=== PATIENT | male | born 1965 | race Caucasian/White ===

== ENCOUNTER → 2023-05-23 | Outpatient (CLI) | payer OTHER, SELFPAY ==
--- NOTE | 2023-05-23 | IMM_PTH ---
PATIENT: GIOVANNA JONES Sr. LOC: [facility] U#:[id number] AGE/SX: 57/M ROOM: RE05/23/[address]: Dr. Oscar Dunaway MD : 1965 BED: DIS: 05/23/2023 SPEC #: [id number] RECD: 05/27/23 15:46 STATUS: YVETTE RETatyana #: [id number] ENID: 05/23/23 00:[address]: Oscar Dunaway DEPT: IMMUNOHISTOCHEMISTRY RECD BY: Steph Dumont Tissues: A - PROSTATE RIGHT B - PROSTATE RIGHT C - PROSTATE RIGHT D - PROSTATE LEFT Procedures: 34BE12 (add) P40 (add) 34BE12 (initial) PHYSICIAN & INSTITUTION [place] [id number] SPECIMEN INFORMATION: Tissue Source: A - Right apex, B - Right mid, C - Right base, D - Left apex Clinical Info: Elevated PSA Specimen Number: [id number] A-D CPT code: 83420, 22582 x7 METHODOLOGY: Deparaffinized sections of prefer/formalin-fixed tissue or PAP/DQ stained slides are incubated with monoclonal/polyclonal antibodies/oligonucleotide probes. Localization is made via biotin free immunoperoxidase method. Appropriate controls are performed and reacted as expected. Results on target cell population are indicated in the following table: RESULTS: ANTIBODY / CLONE RESULT Block A P40 (BC28) negative 34BE12 (34BE12) negative Block B P40 (BC28) negative 34BE12 (34BE12) negative Block C P40 (BC28) positive 34BE12 (34BE12) positive Block D P40 (BC28) negative 34BE12 (34BE12) negative These tests were developed and their performance characteristics determined by [facility]. They may not have been cleared or approved by the U.S. Food and Drug Administration. The FDA has determined that such clearance or approval is not necessary. The above immunohistochemical/dualISH markers are ordered and reviewed by the Pathologist. INTERPRETATION: A. Right prostate, apex, core biopsy: Adenocarcinoma. B. Right prostate, mid, core biopsy: Adenocarcinoma. C. Right prostate, base, core biopsy: Benign prostatic tissue. D. Left prostate, apex, core biopsy: Adenocarcinoma. AM:steven 05/28/2023
--- NOTE | 2023-05-23 08:00 | PROSBIL_PTH ---
PATIENT: GIOVANNA JONES Sr. [id number] AGE/SX: 57/M ROOM: RE05/23/[address]: Dr. Oscar Dunaway MD : 1965 BED: DIS: 05/23/2023 SPEC #: [id number] RECD: 05/23/23 16:08 STATUS: YVETTE DESIRE #: [id number] ENID: 05/23/23 08:[address]: Oscar Dunaway DEPT: SURGICAL PATHOLOGY RECD BY: Hailey Parker Tissues: A - PROSTATE RIGHT B - PROSTATE RIGHT C - PROSTATE RIGHT D - PROSTATE LEFT E - PROSTATE LEFT F - PROSTATE LEFT Procedures: PROSTATE BX HEADER OPERATION: Prostate biopsy PRE-OP DIAGNOSIS: Elevated PSA TISSUE SUBMITTED: A - Right apex, B - Right mid, C - Right base, D - Left apex, E - Left mid, F - Left base MICROSCOPIC DIAGNOSIS A. Right prostate, apex, core biopsy: Adenocarcinoma. [place] grade: 6 (3+3) Cores involved: 1 out of 2 cores Tissue involved: 2% Greatest tumor length: 1.0 millimeters See comment. B. Right prostate, mid, core biopsy: Adenocarcinoma. [place] grade: 6 (3+3) Cores involved: 1 out of 2 cores Tissue involved: 20% Greatest tumor length: 4 millimeters See comment. C. Right prostate, base, core biopsy: Benign prostatic tissue. See comment. D. Left prostate, apex, core biopsy: Adenocarcinoma. [place] grade: 6 (3+3) Cores involved: 1 out of 2 cores Tissue involved: 45% Greatest tumor length: 3 millimeters Focal high-grade prostatic intraepithelial neoplasia (HGPIN). See comment. E. Left prostate, mid, core biopsy: Adenocarcinoma. [place] grade: 6 (3+3) Cores involved: 2 out of 2 cores Tissue involved: 70% Greatest tumor length: 6 millimeters F. Left prostate, base, core biopsy: Chronic prostatitis with focal acute prostatitis. AM:steven 05/27/2023 AM:steven 06/12/2023 COMMENT A-D. Immunohistochemistry ([id number]) supports the above diagnosis. MICROSCOPIC DESCRIPTION Slides are reviewed. GROSS DESCRIPTION A - Received is one container designated prostate, right apex. The specimen consists of two elongated fragments of light garcia-white soft tissue each measuring 1.0 cm in length and 0.1 cm in diameter. The specimen is totally submitted in one cassette. B - Received is one container designated prostate, right mid. The specimen consists of two elongated fragments of light garcia-white soft tissue each measuring 1.5 cm in length and 0.1 cm in diameter. The specimen is totally submitted in one cassette. C - Received is one container designated prostate, right base. The specimen consists of two elongated fragments of light garcia-white soft tissue each measuring 1.5 cm in length and 0.1 cm in diameter. The specimen is totally submitted in one cassette. D - Received is one container designated prostate, left apex. The specimen consists of two elongated fragments of light garcia-white soft tissue each measuring 1.0 cm in length and 0.1 cm in diameter. The specimen is totally submitted in one cassette. E - Received is one container designated prostate, left mid. The specimen consists of two elongated fragments of light garcia-white soft tissue each measuring 1.0 cm in length and 0.1 cm in diameter. The specimen is totally submitted in one cassette. F - Received is one container designated prostate, left base. The specimen consists of two elongated fragments of light garcia-white soft tissue each measuring 1.5 cm in length and 0.1 cm in diameter. The specimen is totally submitted in one cassette. / AM:steven 05/24/2023 TC:0 [facility]: [id number] x6
--- NOTE | 2023-05-23 08:00 | PROSBIL_PTH ---
PATIENT: GIOVANNA JONES Sr. [id number] AGE/SX: 57/M ROOM: RE05/23/[address]: Dr. Oscar Dunaway MD : 1965 BED: DIS: 05/23/2023 SPEC #: [id number] RECD: 05/23/23 16:08 STATUS: YVETTE DESIRE #: [id number] ENID: 05/23/23 08:[address]: Oscar Dunaway DEPT: SURGICAL PATHOLOGY RECD BY: Hailey Parker Tissues: A - PROSTATE RIGHT B - PROSTATE RIGHT C - PROSTATE RIGHT D - PROSTATE LEFT E - PROSTATE LEFT F - PROSTATE LEFT Procedures: PROSTATE BX HEADER OPERATION: Prostate biopsy PRE-OP DIAGNOSIS: Elevated PSA TISSUE SUBMITTED: A - Right apex, B - Right mid, C - Right base, D - Left apex, E - Left mid, F - Left base MICROSCOPIC DIAGNOSIS A. Right prostate, apex, core biopsy: Mild chronic inflammation with focal acute inflammation. Focal high-grade prostatic intraepithelial neoplasia (HGPIN). See comment. B. Right prostate, mid, core biopsy: Adenocarcinoma. [place] grade: 6 (3+3) Cores involved: 1 out of 2 cores Tissue involved: 20% Greatest tumor length: 4 millimeters See comment. C. Right prostate, base, core biopsy: Benign prostatic tissue. See comment. D. Left prostate, apex, core biopsy: Adenocarcinoma. Shel[place] grade: 6 (3+3) Cores involved: 1 out of 2 cores Tissue involved: 45% Greatest tumor length: 3 millimeters Focal high-grade prostatic intraepithelial neoplasia (HGPIN). See comment. E. Left prostate, mid, core biopsy: Adenocarcinoma. [place] grade: 6 (3+3) Cores involved: 2 out of 2 cores Tissue involved: 70% Greatest tumor length: 6 millimeters F. Left prostate, base, core biopsy: Chronic prostatitis with focal acute prostatitis. AM:steven 05/27/2023 COMMENT A-D. Immunohistochemistry ([id number]) supports the above diagnosis. MICROSCOPIC DESCRIPTION Slides are reviewed. GROSS DESCRIPTION A - Received is one container designated prostate, right apex. The specimen consists of two elongated fragments of light garcia-white soft tissue each measuring 1.0 cm in length and 0.1 cm in diameter. The specimen is totally submitted in one cassette. B - Received is one container designated prostate, right mid. The specimen consists of two elongated fragments of light garcia-white soft tissue each measuring 1.5 cm in length and 0.1 cm in diameter. The specimen is totally submitted in one cassette. C - Received is one container designated prostate, right base. The specimen consists of two elongated fragments of light garcia-white soft tissue each measuring 1.5 cm in length and 0.1 cm in diameter. The specimen is totally submitted in one cassette. D - Received is one container designated prostate, left apex. The specimen consists of two elongated fragments of light garcia-white soft tissue each measuring 1.0 cm in length and 0.1 cm in diameter. The specimen is totally submitted in one cassette. E - Received is one container designated prostate, left mid. The specimen consists of two elongated fragments of light garcia-white soft tissue each measuring 1.0 cm in length and 0.1 cm in diameter. The specimen is totally submitted in one cassette. F - Received is one container designated prostate, left base. The specimen consists of two elongated fragments of light garcia-white soft tissue each measuring 1.5 cm in length and 0.1 cm in diameter. The specimen is totally submitted in one cassette. / AM:steven 05/24/2023 TC:0 CPT: 46044 x6
== END | disposition home or self-care (01) ==
PROVIDERS: Referring Provider Urology; Visit Provider Urology
DX: C61 Malignant neoplasm of prostate (principal); R97.20 Elevated prostate specific antigen [PSA]; N42.31 Prostatic intraepithelial neoplasia; N41.1 Chronic prostatitis
CPT/HCPCS: 88305; 88341; 88342; G0416

== ENCOUNTER 2023-07-24 07:53 | Observation (INO) | payer OTHER, SELFPAY ==
--- NOTE | 2023-07-16 14:02 | EKG12_ITS ---
Test Reason : PREOP Blood Pressure : / mmHG Vent. Rate : 073 BPM Atrial Rate : 073 BPM P-R Int : 138 ms QRS Dur : 110 ms QT Int : 392 ms P-R-T Axes : 029 -39 013 degrees QTc Int : 431 ms Normal sinus rhythm Left axis deviation Abnormal ECG Confirmed by TOSHIA REAVES, JAMES ([id number]), photographic editor ANNIE GUERRERO ([id number]) on 07/17/2023 5:56:26 AM Referred By: Rj Rosenthal Confirmed By:JAMES POPE MD
[2023-07-24] VITALS (12 sets, daily range): BP systolic 129–147; BP diastolic 75–89; PULSE 71–85; RESP 16–18; TEMP 36.3–37.1; O2SAT 92–100; BMI 38.0
--- OUTSIDE RECORDS SUMMARY | 2023-07-24 05:41 | XMS RPT_ITS | CCD ---
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 Name Role Phone CHELSEA CENTENO DO Primary Care Physician CHELSEA CENTENO DO Primary Care Unavailable CHELSEA CENTENO DO Attending Unavailable CHELSEA CENTENO DO Primary Care Unavailable VINEET REAVES, DR ALEKSANDRA MCKEON Attending CHELSEA Bedoya DO Primary Care Unavailable CHELSEA CENTENO DO Attending Unavailable CHELSEA CENTENO DO Attending Unavailable CHELSEA CENTENO DO Primary Care Unavailable CHELSEA CENTENO DO Attending Unavailable CHELSEA CENTENO DO Primary Care Unavailable Medications Current Medications Medication Drug Class(es) Dates Sig (Normalized) Sig (Original) atorvastatin 40 mg oral tablet (3 sources) HMG-CoA Reductase Inhibitor Start: 10-31-2022 atorvastatin 40 mg oral tablet Dose : 40 mg = 1 tab(s), Oral, Daily, # 90 tab(s), 3 Refill(s), Pharmacy: [id number], 177, cm, 09/10/22 16:03:00 EST, Height, kg, 09/10/22 16:03:00 EST, Dosing Weight Start Date: 10/31/22 Status: Ordered Problems Problem Classification Problem Date Documented Da te Episodic/Chronic Abdominal hernia (3 sources) Umbilical hernia 09-10-2022 Episodic Chronic kidney disease (1 source) Chronic kidney disease stage 3A 04-02-2023 Chronic Diabetes mellitus without complication (4 sources) Type 2 diabetes mellitus 09-26-2022 Chronic Disorders of lipid metabolism (4 sources) Mixed hyperlipidemia; Translations: [Mixed hyperlipidemia] Chronic Esophageal disorders (4 sources) Gastroesophageal reflux disease without esophagitis; Translations: [Gastro-esophageal reflux disease without esophagitis] Chronic Nutritional deficiencies (2 sources) Vitamin D deficiency 09-26-2022 Chronic Other aftercare (1 source) Long-term current use of drug therapy; Translations: [Other residential (current) drug therapy] Episodic Other disorders of stomach and duodenum (3 sources) Indigestion 04-02-2019 Episodic Other ear and sense organ disorders (3 sources) Sensation of blocked ear 09-10-2022 Episodi c Other ear and sense organ disorders (3 sources) Tinnitus 09-10-2022 Episodic Other nutritional; endocrine; and metabolic disorders (1 source) Morbid obesity; Translations: [Morbid (severe) obesity due to excess calories] Chronic Other nutritional; endocrine; and metabolic disorders (5 sources) Body mass index 40+ - severely obese 09-10-2022 Chronic Other nutritional; endocrine; and metabolic disorders (1 source) Body mass index 30+ - obesity 04-02-2023 Chronic Other nutritional; endocrine; and metabolic disorders (1 source) Severe obesity 04-02-2023 Chronic Other screening for suspected conditions (not mental disorders or infectious disease) (3 sources) Raised prostate specific antigen; Translations: [Elevated prostate specific antigen [PSA]] Episodic Residual codes; unclassified (3 sources) FH: Myocardial infarction 09-10-2022 Episodic Residual codes; unclassified (1 source) Memory impairment 04-02-2023 Episodic Screening and history of mental health and substance abuse codes (3 sources) Tobacco use and exposure - finding 09-10-2022 Chronic Unclassified (3 sources) Long-term current use of proton pump inhibitor therapy 09-10-2022 Unclassified (2 sources) Grade A1 albuminuria 09-26-2022 Results Test Name Value Interpretation Reference Range Facil ity Encounters Encounter Date Encounter Type Care Provider Facility Start: 04-19-2023 End: 04-20-2023 ambulatory CHELSEA CENTENO DO Facility:B Start: 04-19-2023 End: 04-19-[address] ALEKSANDRA MANLEY MD [facility] Start: 03-27-2023 End: 03-28-2023 ambulatory CHELSEA CENTENO DO Facility:B Start: 11-07-2022 End: 11-08-2022 ambulatory CHELSEA CENTENO DO Facility:B Start: 11-07-2022 End: 11-07-2022 Patient encounter procedure CHELSEA Agustin NAVACENTENO DO [facility] Start: 09-12-2022 End: 09-17-2022 ambulatory CHELSEA CENTENO DO Facility:B Start: 09-12-2022 End: 09-17-2022 Encounter for general adult medical examination without abnormal findings CHELSEA CENTENO DO Facility:B Start: 09-11-2022 End: 09-12-2022 ambulatory CHELSEA CENTENO DO Facility:B Start: 09-11-2022 End: 09-11-2022 Patient encounter procedure CHELSEA CENTENO DO [facility] Start: 09-11-2022 End: 09-11-2022 Well adult monitoring check done CHELSEA CENTENO DO [facility] Immunizations Immunization Date Immunization Notes Care Provider Fa [facility] 06-16-2019 influenza virus vaccine, unspecified formulation CHELSEA CENTENO DO [facility] 01-30-2013 tetanus toxoid, redu sunil diphtheria toxoid, and acellular pertussis vaccine, adsorbed CHELSEA CENTENO DO [facility] Payers Date Payer Category Payer Private Health Insurance [facility] [id number] 2017 Unknown [id number] 1965 Unknown [id number] 2.16.8 [id number] 1965 Unknown [id number] 2.16.8 [id number] 1965 Unknown [id number] 2.16.8 [id number] 1965 Unknown [id number] 2.16.8 [id number] 1965 Unknown [id number] 2.16.8 [id number] Social History Date Type Detail Facility Start: 04-02-2019 Tobacco smoking status Ex-smoker (fi nding) [facility] Evaluation + Plan note Laboratory Note Date & Type Note Facility Evaluation + Plan note Future Appointments Appointment Date:11/12/2022 04:00:00 PM Scheduled Provider:CHELSEA CENTENO DO Location:[facility] Appointment Type:PC OV Future Scheduled TestsMicroalbumin Level Urine 09/10/22 [facility] Evaluation + Plan note Note Date & Type Note Facility Evaluation + Plan note Future Appointments Appointment Date:11/12/2022 04:00:00 PM Scheduled Provider:CHELSEA CENTENO DO Location:[facility] Appointment Type:PC OV [facility] Evaluation + Plan note Laboratory Note Date & Type Note Facility Evaluation + Plan note Future Appointments Appointment Date:09/23/2023 04:30:00 PM Scheduled Provider:CHELSEA CENTENO DO Location:[facility] Appointment Type:PC Wellness Annual Future Scheduled TestsProstate Specific Antigen 04/02/23Thyroid Stimulating Hormone 04/02/23Free T4 04/02/23Vitamin B12 Level 04/02/23A1C Hemoglobin 04/02/23Complete Blood Count 04/02/23Lipid Profile 04/02/23Albumin/Creatinine Ratio, Random Urine 04/02/23Vitamin D Level 04/02/23Vitamin B6 Level 04/02/23Complete Metabolic Panel 04/02/23 [facility] Hospital course Narrative Note Date & Type Note Facility Hospital course Narrative No data available for this section [facility] Hospital Discharge instructions Note Date & Type Note Facility Hospital Discharge instructions No data available for this section [facility] Progress note Note Date & Type Note Facility Progress note No data available for this section [facility] Summary Purpose Family History No Family History Records Found Advance Directives No Advanced Directives Records Found Additional Source Comments Care Team (unrecognized sect ion and content) Care Team Personnel Name: CHELSEA CENTENO DO Position: P4 Physician - Primary Care Member Role: Primary Care Physician Address: Address: [address] [place] [address] Care Team Related Persons Name: GIOVANNA JONES Address: [address] [phone] [place] Address: Temporary [address] [place] [phone] Patient Care team informatio n (unrecognized section and content) Care Team Personnel Name: CHELSEA CENTENO DO Position: P4 Physician - Primary Care Member Role: Primary Care Physician Address: Address: [address] [place] [address] Care Team Related Persons Name: GIOVANNA JONES Address: [address] [phone] Address: [address] [phone] (unrecognized sect ion and content) No Status Records Found INFORMATION SOURCE (unrecogn ized section and content) FOR RECORDS PERTAINING TO PATIENTS WHO ARE OR HAVE BEEN ENROLLED IN A CHEMICAL DEPENDENCY/SUBSTANCEABUSE PROGRAM, SOME INFORMATION MAY BE OMITTED. This clinical summary was aggregated from multiple sources. Caution should be exercised in using it in the provision of clinical care. This summary normalizes information from multiple sources, and as a consequence, information in this document may materially change the coding, format and clinical context of patient data. In addition, data may be omitted in some cases. CLINICAL DECISIONS SHOULD BE BASED ON THE PRIMARY CLINICAL RECORDS. [facility]. provides no warranty or guarantee of the accuracy or completeness of information in this document.
[2023-07-24] MEDS: Lactated Ringers 1,000 ML 15 ML IV ×2 (06:50→11:40)
[2023-07-24] MEDS: Cefazolin 2 GM in 0.9% Normal Saline (100mL Bag) 100 ML IV (07:30)
--- NOTE | 2023-07-24 07:30 | PROST_PTH ---
PATHOLOGY RESULTS PATIENT: GIOVANNA JONES Sr. LOC: [facility] U#:[id number] AGE/SX: 57/M ROOM: [id number] RE07/24/[address]: Dr. Oscar Dunaway MD : 1965 BED: 1 DIS: 07/25/2023 SPEC #: [id number] RECD: 07/25/23 08:09 STATUS: YVETTE PHIPPS #: [id number] ENID: 07/24/23 07:[address]: Oscar Dunaway DEPT: SURGICAL PATHOLOGY RECD BY: Rachel Reynoso ENTERED: 07/25/23 08:10 SP TYPE: PROSTATE OTHR DR: MD Dr. Obi Huang DO Tissues: Prostate, NOS Lymph node of pelvis, NOS Lymph node of pelvis, NOS Procedures: Surgery Specimen Level V Surgery Specimen Level HEADER OPERATION: Lap robotic radical prostatectomy, umbilical hernia repair PRE-OP DIAGNOSIS: Malignant neoplasm of prostate, elevated PSA TISSUE SUBMITTED: A - Right pelvic lymph node, B - Left pelvic lymph node, C - Prostate MICROSCOPIC DIAGNOSIS A. Right pelvic lymph nodes, regional dissection: Five out of five lymph nodes, negative for metastatic carcinoma. B. Left pelvic lymph nodes, regional dissection: One lymph node, negative for metastatic carcinoma. C. Prostate, radical prostatectomy: Prostatic adenocarcinoma. See cancer summary in the comment section. SJ:steven 07/29/2023 COMMENT PROSTATE CANCER (RADICAL) SUMMARY: Procedure: Radical Prostatectomy Prostate Size: Weight: 52.2 gm Size: 5.0 cm transversely, 3.5 cm anterior-posteriorly and 3.5 cm craniocaudally Histologic Type: Acinar adenocarcinoma Histologic Grade: Grade group 2 (Rector score 3+4=7) Percent of Pattern 4: <5% Intraductal Carcinoma: Not identified Tumor Quantitation: Estimated percentage of prostate involved by tumor: ~10% Tumor size: The tumor involves both right and left lobes and present in the apical, mid and basal portion of both lobes. The tumor in the right lobe measures approximately 2.4 x1.6 x 0.5 cm and tumor in the left lobe of prostate measures approximately 2.4 x 1.2 x 0.6 cm. (measured microscopically) Extraprostatic Extension: Not identified Urinary Bladder Neck Invasion: Not identified Seminal Vesicle Invasion: Not identified Lymphvascular Invasion: Not identified Perineural Invasion: Present, focal Margins: Margin focally involved by invasive carcinoma. Linear length of the positive margin: 0.3 cm Location of positive margin: Apical Shelly pattern at positive margin: 3+3 =6 Treatment Effect: No known presurgical therapy. Regional Lymph Nodes: Number of lymph nodes involved: 0 Total number of lymph nodes examined: 6 Distant metastasis: Not applicable Additional Pathologic Findings: Moderate chronic inflammation and mild acute inflammation. - Focal high-grade prostatic intraepithelial neoplasia (HGPIN). Clinical History: Please make reference to previous specimen ([id number]), right prostate, apex and mid, core biopsies and left prostate, apex and mid, core biopsies with diagnosis of prostatic adenocarcinoma. PATHOLOGIC STAGE: pT2 pN0 pMx The above summary is in compliance with [employer] [employer] (CAP) Cancer Protocols Checklist and [place] Joint Committee on Cancer (AJCC), Staging Manual, 8th Ed. Case has been reviewed in consultation with Dr. Gaines who concurs with the above diagnosis. IDC:AM MICROSCOPIC DESCRIPTION Slides are reviewed. GROSS DESCRIPTION A - Received in fixative is one container labeled with the patient's name and designated right pelvic lymph node. The specimen consists of three pieces of yellow adipose tissue containing nodules, consistent with lymph nodes, measuring in aggregate 3.5 x 4.0 x 1.5 cm. The entire specimen is submitted in four cassettes as follows: 1 - one bisected lymph node, 2 - one bisected lymph node, 3 & 4 - rest of the specimen. B - Received in fixative is one container labeled with the patient's name and designated left pelvic lymph node. The specimen consists of two pieces of yellow adipose tissue measuring 3.0 x 3.0 x 0.5 cm. No obvious lymph node tissue is identified. The entire specimen is submitted in two cassettes. C - Received in fixative is one container labeled with the patient's name and designated prostate. The specimen consists of a radical prostatectomy specimen consisting of prostate and bilateral seminal vesicles and vas deferens. The specimen weighs 52.2 gm. The prostate measures 5.0 cm transversely, 3.5 cm anterior-posteriorly and 3.5 cm craniocaudally. The right seminal vesicle measures 2.0 x 1.5 x 0.5 cm and right vas deferens measures 3.0 cm in length and 0.5 cm in diameter. The left seminal vesicle measures 2.0 x 1.5 x 0.5 cm and the left vas deferens measures 2.5 cm in length and 0.5 cm in diameter. The prostate is inked as follows: anterior surface - yellow, posterior surface - black, right lateral surface - blue, left lateral surface - green. The bilateral seminal vesicles and vas deferens are inked as follows: Posterior surface bilateral seminal vesicle and vas deferens - black, anterior surface right seminal vesicle and vas deferens - blue and anterior left seminal vesicle and vas deferens - green. Sections do not reveal any mass lesions. Cath Lab Tech sections are submitted in 19 cassettes as follows: 1 - right seminal vesicle and vas deferens, 2 - left seminal vesicle and vas deferens, 3 - apical (urethral) margin, enface, 4 - bladder neck and basal portion of prostate margin, enface, 5-8 - apical portion prostate, 9-14 - middle portion prostate, 15-19 - basal portion prostate. / SJ:rg 07/25/2023 TC:0 CPT: 49192, 37316 x2
--- NOTE | 2023-07-24 07:56 | PCM.HP.STD ---
HPI - General General Date of Service: 07/24/23 Chief Complaint: Prostate cancer HPI Narrative GIOVANNA JONES, is a 57 M who presents for a radical prostatectomy hernia repair and also pelvic lymph node dissection PFSH Medical History (Updated 07/04/23 @ 15:40 by Isabel Sargent) BPH (benign prostatic hyperplasia) Cancer Former smoker Gastric reflux High cholesterol Prostate disease Wears glasses Home Medications atorvastatin 40 mg tablet 40 mg PO QHS 06/13/23 [History Last Taken 07/23/23] esomeprazole magnesium 40 mg capsule,delayed release (Nexium) 40 mg PO DAILY 06/13/23 [History Last Taken 07/24/23] ciprofloxacin HCl 500 mg tablet (Cipro) 500 mg PO BID #20 tabs 07/24/23 [Rx Last Taken Unknown] docusate sodium 100 mg capsule (Colace) 100 mg PO BID #20 caps 07/24/23 [Rx Last Taken Unknown] oxycodone 5 mg tablet 5 mg PO Q6H PRN pain 7 days #14 tabs 07/24/23 [Rx Last Taken Unknown] Allergy/AdvReac Type Severity Reaction Status Date / Time No Known Allergies Allergy Verified 07/24/23 05:52 Family History (Updated 06/13/23 @ 09:02 by Yennifer Thompson) Father Heart disease Surgical History (Updated 07/04/23 @ 15:43 by Isabel Sargent) No history of previous surgery Social History (Updated 06/13/23 @ 08:57 by Yennifer Thompson) Smoking Status: Former smoker alcohol intake: never substance use type: does not use Vital Signs Vital Signs Vital Signs: 07/24/23 06:34 07/24/23 06:34 Temperature 98.8 F Temperature Source Temporal Pulse Rate 75 Respiratory Rate 16 Respiratory Pattern Normal Blood Pressure 142/89 H Blood Pressure Mean 106 Blood Pressure Source Monitor Blood Pressure Position Semi-Fowlers Blood Pressure Location Left Arm Pulse Ox 98 Oxygen Delivery Method Room Air Weight Weight: 117 kg Body Mass Index (BMI) 38.0
--- NOTE | 2023-07-24 07:57 | PCM.DC ---
Discharge Instructions Diet Discharge Diet: No restrictions Activity Discharge Activity: Return to Normal Activity and May Not Drive (while taking narcotic pain medications.) Lifting Restrictions: No lifting greater than 10 pounds for 6 weeks Dressing / Incision Call your doctor if you observe: Fever of 101 or Higher Catheter: Chung to leg bag and Chung to large bag Drain: [place] Follow Up Care Please Follow Up With: Oscar Dunaway MD When: Call [phone] for an appointment Test Results: Test results from this visit will be discussed in further detail at your follow-up appointment, if applicable. Discharge Plan Admission Primary Reason for Your Visit: Radical prostatectomy Attending Provider: Oscar Dunaway Primary Care Provider: Obi Mckay Consulting Providers: Rj Rosenthal Discharge Orders/Prescriptions Prescriptions: New ciprofloxacin HCl [Cipro] 500 mg tablet 500 mg PO BID Qty: 20 0RF docusate sodium [Colace] 100 mg capsule 100 mg PO BID Qty: 20 0RF oxycodone 5 mg tablet 5 mg PO Q6H PRN (Reason: pain) 7 Days Qty: 14 0RF Continued esomeprazole magnesium [Nexium] 40 mg capsule,delayed release(DR/EC) 40 mg PO DAILY atorvastatin 40 mg tablet 40 mg PO QHS Referrals / Follow Up: Oscar Dunaway MD [Med Staff - Active Staff] - Disposition Disposition (needs filled in before D/C Order can be placed): Home, Self Care
[2023-07-24] MEDS: Bupivacaine Mpf 0.5% 30 ML VIAL (10:57)
--- NOTE | 2023-07-24 11:01 | OP.PCM_ITS ---
Report of Operation Date of Procedure: 07/24/23 Pre-Operative Diagnosis: Prostate cancer and umbilical hernia Post-Operative Diagnosis: The same Surgery/Procedure Performed:: Laparoscopic robotic assisted radical prostatectomy with bilateral lymph node dissection and repair of umbilical hernia Description of Surgical Findings:: Patient presented to the hospital for treatment of his prostate cancer with radical prostatectomy. In the preoperative setting we discussed the options of management for his prostate cancer including active surveillance, radiation treatments, radioactive seeds, and radical robotic prostatectomy. We discussed the side effects of surgery including the potential to lose erections. We discussed the potential to have bladder control problems with stress incontinence which can be temporary or permanent. We discussed the risk of the surgery including the risk of general anesthetic, risk of bleeding, risk of infection, and risk of formation of hernia either incisional hernia or inguinal hernia. After long discussion with the patient the preoperative setting and also reviewed this in the preop area patient signed the consent form and we proceeded with a radical prostatectomy. Patient was taken back to the operating room he was identified, time out procedure was performed and he was placed supine on the table he underwent general anesthesia with intubation. The abdomen was shaved prepped and draped in usual sterile fashion as well as the penis and testicles. A 16 Samoan catheter was placed into the bladder with clear return of urine. I then made an incision in the umbilicus and dissected down to the fascia advance a Veress needle into the peritoneal cavity and insufflated the peritoneal cavity with CO2 gas. I then placed a 12 mm trocar above the umbilicus. I then visualized the placement of the rest of the trochars, I placed a right arm robotic trocar, and air seal trocar, a suction port 5 mm trocar. And on the left side I placed 2 robotic arms. Once all the trochars were in placed the patient was put in steep Trendelenburg. And the robot was docked the arms were docked and then I placed the 0 degree camera through the robotic arm and also used a 30 degree camera during certain parts of the case. I used scissors in the right arm, prograsp in the third arm, and a bipolar in the second arm. Initial dissection was to free the sigmoid colon off the lateral wall this was done by meticulously dissecting off the peritoneum and the sigmoid colon off the left lateral wall. This then allowed the prograsp to retract the sigmoid colon out of the pelvis. I then went below the bladder and identified the vas deferens incised the peritoneum over the vas deferens and traced the vas deferens below the bladder to the prostate and identified the right and left vasa deferens. Below behind the vas deferens then the seminal vesicles were identified. I then dissected the seminal vesicle free using pinpoint electrocautery and then we identified the other seminal vesicle and then dissected this using pinpoint electrocautery I then elevated the vas deferens and several vesicles off the prostate and was able to sweep the Denonvilliers' fascia off the prostate posteriorly all the way up to the apex of the prostate. Working laterally I made sure I went as lateral as possible to sweep the Denonilliers' fascia off the posterior aspect of the prostate and worked my way back, I then transected the vas deferens and the left and right side the seminal vesicles were then dissected free. And then I pulled out of the pelvis. At this point the bladder was dropped creating the space of Retzius with the bladder on traction with the fourth arm. Using electrocautery I dissected in the anterior peritoneal fascia and then created the space of Retzius dissecting towards the prostate. The pelvic lymph node dissection was then performed both side. Rhe right pelvic lymph nodes the nodes that were taken on the right side extended from the right iliac artery lateral pelvic sidewall up to the junction of the artery and the lymph nodes and down to the obturator nerve and then also below the spike machine operator nerve all the lymph nodes were removed during to remove those lymph nodes we used clips and electrocautery to control small blood vessels and also the control lymphatic. I then went to the left side and again did an extensive lymph node dissection starting of the left iliac artery extending the left iliac vein on the lateral sidewall down to the obturator nerve and the left side beyond the spike machine operator nerve down further behind it cleaning out all the lymphatic tissue all this tissue was sent off as a specimen we use clips and electrocautery during the dissection. At the end we cleaned out all the lymphatic tissue on the right pelvic wall and all the lymphatic tissue in the l eft pelvic wall. The prostate was then cleaned of the fat over the prostate and the fourth arm was used to retract the bladder and place traction. I then identified the endopelvic fascia that was overlying the prostate on the right side I incised endopelvic fascia and wwept the levator muscles off the prostate all the way to the apex on the right side, I then worked my way anterior to the prostate then transected to the puboprostatic ligament and the underlying dorsal vein complex was not injured. I then went to the other side and identified the endopelvic fascia in the left side incised in a fashion the left side and swept the levator muscles off the prostate on the left side all the way up to the apex the puboprostatic ligament on the left side was then dissected and transected I then freed up the fascia overlying the dorsal vein complex. I then used the prograsp to encircled the dorsal vein complex with the prograsp and then switched over to the right and left needle horse and wagon driver and suture ligated the dorsal vein complex above the prograsp. The prograsp was then placed back in the bladder and put back on traction I then identified the junction between the bladder and the prostate and dissected down between the bladder and the prostate untilI came across the catheter we then dissected posteriorly to the bladder and prostate to free the prostate and the bladder off each other and the muscles between the bladder and the prostate was then cauterized to free up the bladder. I then went on top of the prostate and identified the endopelvic fascia on top of the prostate this was incised all the way to the apex and then we swept the endopelvic fascia off the prostate laterally and then identified the plane between endopelvic fascia and the prosthetic pseudocapsule and swept the fascia laterally until reaching the course of the neurovascular bundles and then released the neurovascular bundles off the prostate laterally all the way back in a retrograde fashion back to the junction of the pedicles then the prostate was placed on traction with the fourth arm pulling the prostate laterally identified the pedicle to the prostate between the seminal vesicles and the and the neurovascular bundle and this was taken using sequential small hemolocks. After the pedicle was taken the I then dissected underneath the prostate sweeping the neurovascular bundle off the prostate we able to follow the nice smooth plane between the neurovascular bundle and the pseudocapsule all the way to the apex once this was identified we swept this up all the way up to the apex and there was perfect nerve sparing on the right side. Then went to the left side the prostate identified the endopelvic fascia over the left side of the prostate I incised the endopelvic fascia all the way to the apex and then swept this off laterally I then released the neurovascular bundles on the left side of the prostate sweeping him off the prostate laterally I then elevated the prostate up up with the prostate and traction identified the pedicle to the prostate on the left side and then the pedicles taken with sequential Hem-o-patricia clips I then was able to dissected the neurovascular bundle off the left posterior aspect the prostate this was a perfect dissection all the way up on the left side following the pseudocapsule all the way up the left side until we reached the apex of the prostate. After the both the neurovascular bundles has been swept off the posterior to the prostate I then went above and transected the dorsal vein complex there was minimal to no bleeding but then dissected down to the urethra and circumfencial dissected around the urethra I then switched the right and left arm with the needle drivers and I suture-ligated the dorsal vein complex again just to ensure that there was no bleeding from the dorsal vein complex. I then transected through the urethra with scissors and the prostate was then freed and released off the prostate bed and put an Endo Catch bag. At this point the bladder neck was reconstructed and then an anastomosis was performed between the prostate and the bladder with a 3 oh V-Loc stitch in a running fashion starting from the bladder neck at the 6 o'clock position working to the 12 o'clock position with continuous stitches to complete a perfect anastomosis between the bladder and the prostate. I then placed a new catheter into the bladder, an 18 Samoan peoria tip catheter flushed the bladder and there was no leakage from the anastomosis I put 10 cc in the balloon and pulled it up pulled back gently. I then ensured that there was no bleeding from the dorsal vein complex no bleeding from the neurovascular bundles FloSeal was placed as necessary once hemostasis was ensured and adequate then I placed the bladder back in position in the pelvis the prostate was exchanged to the camera port I closed the air seal port with a 10 12 Ej Hughes stitch. And the extracted the prostate through the umbilicus. The robot was undocked all the ports were removed under direct visualization then closed the extraction site with 0 Vicryl with a CT1 needle once the extraction site was closed. We then proceeded with the repair of the umbilical hernia at this point, now that the prostate had been removed through the umbilicus site we opened up the skin we reduced the sac of the hernia we excised the hernia sac freshen up the edges of the fascia and then using 0 Monuril suture, braided nonabsorbable suture we used interrupted sutures to reapproximate the edges of the fascia, the fascia came together nicely we tied these down nicely and closed the hernia. I then reconstructed the skin down to tack down the skin to recreate a bellybutton and then the skin over that was closed with Monocryl stitches. I then closed all the incision with subcuticular stitches with 4-0 Monocryl and then bandages were placed on the incisions catheter was flushed to make sure it was draining well there was no clots and it was crystal clear patient's anesthetic was reversed he was extubated and taken back to the PACU in stable condition all the needles and sponges and instruments were accounted for. Blood loss was minimal and the drain was a 18 Samoan Chung catheter. No other surgical drain was left. I was present during the entire case. Surgeon: Oscar Dunaway Type of Anesthesia: General Drains: 18 fr peoria tip Estimated Blood Loss (mL): 130 Admit VTE Documentation VTE Present on Admission: No VTE Mechan Device Prophylaxis: SCD's VTE Pharm Prophylaxis ordered?: No
[2023-07-24] MEDS: Ketorolac 15 MG/ML Vial IV ×2 (11:43→17:25)
--- OUTSIDE RECORDS SUMMARY | 2023-07-24 11:46 | XMS RPT_ITS | CCD ---
Author Name Unknown Address [id number] [place] [address] Organization [facility] Care Team Providers Care Housekeeping Cleaner Name Role Phone CHELSEA CENTENO DO Primary [...] Daily, # 90 tab(s), 3 Refill(s), [facility]: [id number], 177, cm, 09/10/22 16:03:00 EST, Height, kg, [...] current use of drug therapy; Translations: [Other care home (current) drug therapy] Episodic Other disorders of [...] Patient encounter procedure DR ALEKSANDRA MANLEY MD [facility] Start: 03-27-2023 End: 03-28-2023 ambulatory CHELSEA CENTENO DO Facility:[facility] Start: 11-07-2022 End: 11-08-2022 ambulatory CHELSEA CENTENO DO Facility:[facility] Start: 11-07-2022 End: 11-07-2022 Patient encounter procedure CHELSEA Agustin NAVACENTENO DO [facility] Start: 09-12-2022 End: 09-17-2022 ambulatory CHELSEA CENTENO DO Facility:[facility] Start: 09-12-2022 End: 09-17-2022 Encounter for general adult medical examination without abnormal findings CHELSEA CENTENO DO Facility:[facility] Start: 09-11-2022 End: 09-12-2022 ambulatory CHELSEA CENTENO DO Facility:[facility] Start: 09-11-2022 End: 09-11-2022 Patient encounter procedure CHELSEA CENTENO DO [facility] Start: 09-11-2022 End: 09-11-2022 Well adult monitoring check done CHELSEA CENTENO DO [facility] Immunizations Immunization Date Immunization Notes Care Provider [facility] 06-16-2019 influenza virus vaccine, unspecified formulation CHELSEA CENTENO DO [facility] 01-30-2013 tetanus toxoid, redu sunil diphtheria toxoid, and acellular pertussis vaccine, adsorbed CHELSEA CENTENO DO [facility] Payers Date Payer Category Payer Private Health Insurance [facility] [id number] 2017 Unknown [id number] 1965 Unknown [id number] [id number] [id number] 1967 Unknown [id number] 2.16.8 [id number] 1967 Unknown [id number] 2.16.8 [id number] 1967 Unknown [id number] 2.16.8 [id number] 1967 Unknown [id number] 2.16.8 [id number] Social History Date Type Detail Facility Start: 04-02-2019 Tobacco smoking status Ex-smoker (fi nding) [facility] Evaluation + Plan note Laboratory Note Date & Type Note Facility Evaluation + Plan note Future Appointments Appointment Date:11/12/2022 04:00:00 PM Scheduled Provider:CHELSEA CENTENO DO Location:[facility] Appointment Type:PC OV Future Scheduled TestsMicroalbumin Level Urine 09/10/22 [facility] Evaluation + Plan note Note Date & Type Note Facility Evaluation + Plan note Future Appointments Appointment Date:11/12/2022 04:00:00 PM Scheduled Provider:CHELSEA CENTENO DO Location:[facility] Appointment Type:PC OV [facility] Evaluation + Plan note Laboratory Note Date & Type Note Facility Evaluation + Plan note Future Appointments Appointment Date:09/23/2023 04:30:00 PM Scheduled Provider:CHELSEA CENTENO DO Location:[facility] Appointment Type:PC Wellness Annual Future Scheduled TestsProstate Specific Antigen 04/02/23Thyroid Stimulating Hormone 04/02/23Free T4 04/02/23Vitamin B12 Level 04/02/23A1C Hemoglobin 04/02/23Complete Blood Count 04/02/23Lipid Profile 04/02/23Albumin/Creatinine Ratio, Random Urine 04/02/23Vitamin D Level 04/02/23Vitamin B6 Level 04/02/23Complete Metabolic Panel 04/02/23 [facility] Hospital course Narrative Note Date & Type Note Facility Hospital course Narrative No data available for this section [facility] Hospital Discharge instructions Note Date & Type Note Facility Hospital Discharge instructions No data available for this section [facility] Progress note Note Date & Type Note Facility Progress note No data available for this section [facility] Summary Purpose Family History No Family History Records Found Advance Directives No Advanced Directives Records Found Additional Source Comments Care Team (unrecognized sect ion and content) Care Team Personnel Name: CHELSEA CENTENO DO Position: P4 Physician - Primary Care Member Role: Primary Care Physician Address: Address: [address] [place] [address] Care Team Related Persons Name: GIOVANNA JONES Address: [address] [phone] [place] Address: Temporary [address] [place] [id number] Patient Care team informatio n (unrecognized section and content) Care Team Personnel Name: CHELSEA CENTENO DO Position: P4 Physician - Primary Care Member Role: Primary Care Physician Address: Address: [address] [place] [address] Care Team Related Persons Name: GIOVANNA JONES Address: [address] [phone] Address: [address] [phone] (unrecognized sect ion and content) No Status [...] BE BASED ON THE PRIMARY CLINICAL RECORDS. [facility]. provides no warranty or guarantee of the accuracy or completeness of information in this document.
[2023-07-24] MEDS: 0.9% Normal Saline (1000mL) 1,000 ML 125 ML IV ×2 (13:24→22:45)
[2023-07-24] MEDS: Ciprofloxacin 400 MG/200 ML BAG 200 MG IV (14:45)
[2023-07-24] MEDS: 0.9% Saline Lock 10 ML Syringe IV (17:25)
[2023-07-24] MEDS: Atorvastatin Calcium 40 MG Tablet PO (22:45)
[2023-07-24] MEDS: Docusate Sodium 100 MG Capsule 200 MG PO (22:45)
[2023-07-25] MEDS: Ketorolac 15 MG/ML Vial IV ×2 (00:06→05:12)
[2023-07-25] MEDS: Ciprofloxacin 400 MG/200 ML BAG 200 MG IV (02:47)
[2023-07-25 05:09] VITALS: BP 133/74; PULSE 68; RESP 18; TEMP 36.7; O2SAT 99
--- NOTE | 2023-07-25 07:17 | PN.URO_ITS ---
Subjective Subjective 57-year-old male status post radical prostatectomy for prostate cancer, doing well catheter is in place he recovered well overnight he should be able to go home today with a catheter. Home today with Chung to leg bag Objective Data Objective Data Vital Signs: Vital Signs Temp Pulse Resp BP Pulse Ox O2 Del Method O2 Flow Rate 98.1 F 68 18 133/74 H 99 Room Air 2 07/25/23 05:09 07/25/23 05:09 07/25/23 05:09 07/25/23 05:07/25/23 05:09 07/25/23 05:07/24/23 14:36 Oxygen Flow Rate (L/min) 2 Oxygen Delivery Method Room Air Weight: 117 kg Body Mass Index (BMI) 38.0 Intake & Output: Intake and Output for Last 24 Hours 07/23/23 07/24/23 07/25/23 23:59 23:59 23:59 Intake Total 3910.00 / 3910.00 700 / 700 Output Total 470 / 1970 2850 / 2850 Balance 3440.00 / 1940.00 -2150 / -2150 Capacity Legal Radiology Specialist Reflex Medical hold order details:: IF a medical hold is selected below, a suggested order for a MEDICAL HOLD will reflex upon signing the document. Next of kin: [place] law dictates a PRIORITY LIST for identifying legal decision-maker/legal next of kin in the following order (LNOK): 1st: The patient?s legal guardian, if any 2nd: The patient's spouse (if status is questionable, consult Risk Management) 3rd: The patient?s adult child(justine) (majority, if multiple children) 4th: The patient?s parents 5th: The patient?s adult siblings (majority, if multiple children siblings)
[2023-07-25 07:55] VITALS: BP 129/70; PULSE 55; RESP 18; TEMP 36.8; O2SAT 98
--- NOTE | 2023-07-25 09:04 | CASEMGMT ---
Pt states the RN is going to provide education regarding his Chung prior to DC. Pt states he feels safe going home today via his and denies further needs.
[2023-07-25] MEDS: Docusate Sodium 100 MG Capsule 200 MG PO (09:26)
[2023-07-25] MEDS: Pantoprazole Sodium 40 MG Tablet PO (09:26)
--- NOTE | 2023-07-25 10:21 | PHA.DC.MC.R ---
Pharmacy [facility] Pharmacy Service has performed discharge medication reconciliation and counseling for this patient. 1. CIPROFLOXACIN 500MG PO BID X 10 DAYS 2. DOCUSATE 100MG PO BID X 10 DAYS 3. OXYCODONE 5MG PO Q6H PRN PAIN The patient's discharge medication list was reviewed for discrepancies and discrepancies were resolved. The patient was counseled on the following discharge medications and changes in medications for homegoing were reviewed. The Reason for Use, instructions for use, and potential side effects were reviewed for all new medications. The patient's questions regarding all of their medications were answered. The patient was able to verbally demonstrate an understanding of their discharge medications. Medications at Discharge Home Medications atorvastatin 40 mg tablet 40 mg PO QHS 06/13/23 esomeprazole magnesium 40 mg capsule,delayed release (Nexium) 40 mg PO DAILY 06/13/23 ciprofloxacin HCl 500 mg tablet (Cipro) 500 mg PO BID #20 tabs 07/24/23 docusate sodium 100 mg capsule (Colace) 100 mg PO BID #20 caps 07/24/23 oxycodone 5 mg tablet 5 mg PO Q6H PRN pain 7 days #14 tabs 07/24/23
== END 2023-07-25 12:40 | disposition home or self-care (01) ==
LOC: SDC 11:27 → MS3 11:27
PROVIDERS: Admitting Provider Urology; Referring Provider Urology; Visit Provider Urology
PROC: 0VT04ZZ Resection of Prostate, Percutaneous Endoscopic Approach (ICD-10-PCS; CPT 55866; principal; 2023-07-24 07:10)
DX: C61 Malignant neoplasm of prostate (principal); K42.9 Umbilical hernia without obstruction or gangrene; Z87.891 Personal history of nicotine dependence; K21.9 Gastro-esophageal reflux disease without esophagitis; E78.00 Pure hypercholesterolemia, unspecified; Z79.899 Other long term (current) drug therapy
CPT/HCPCS: 55866; 49591; 00865; 88307; 88309; 93005; 96361; 96365; 96366; 96375; 96376; 99221; J7030; J7120; A4216; G0378; J0744; J2405